=== PATIENT | female | born 1960 | race Caucasian/White ===

== ENCOUNTER 2016-11-06 23:23 | Emergency (ER) | payer MEDICARE, OTHER ==
[2016-11-06] MEDS ORDERED: KETOROLAC 60 MG/2 ML VIAL IVP STA (23:41)
--- NOTE | 2016-11-06 23:44 | ED ---
General Adult HPI - General Stated complaint: Chest Pain Time Seen by Provider: 11/06/16 23:25 Source: RN notes reviewed - History of Present Illness Initial comments: This is a 56-year-old female who presents to the emergency department complaining of right sided chest pain. Patient states it hurts when she takes a deep breath but if she takes normal breaths are shallow breath she does not have any pain. Patient states it also hurts if she moves her right arm. Patient states she was last Wednesday and was worked up for the same pain and was sent home. Patient denies any fever or chills. Patient states she has an occasional cough. Patient denies any sputum production. Patient denies any palpitations. Patient denies any recent injury or trauma that she knows of. Patient denies any heavy lifting that she knows of. Patient denies headache. Patient denies numbness weakness. Patient denies any diaphoresis. Patient states the pain does not radiate anywhere. - Related Data Home Medications Medication Instructions Recorded Confirmed Esomeprazole Magnesium [NexIUM] 40 mg PO DAILY 11/20/15 10/30/16 Ergocalciferol [Vitamin D2 50,000 unit PO BLAKE 07/24/16 10/30/16 (DRISDOL)] Venlafaxine HCl ER [Effexor XR] 150 mg PO HS 07/24/16 10/30/16 Ziprasidone [Geodon] 80 mg PO BID 07/24/16 10/30/16 Hydrocodone/Acetaminophen 1 tab PO TID PRN 08/31/16 10/30/16 [Hydrocodon-Acetaminophn 10-325] traZODone HCL 50 mg PO HS PRN 08/31/16 10/30/16 Albuterol Nebulized [Ventolin 2.5 mg INHALATION RT-Q4H PRN 09/10/16 10/30/16 Nebulized] Aspirin 325 mg PO DAILY 10/21/16 10/30/16 Clotrimazole Cream [Lotrimin Cream] 1 applic TOPICAL BID PRN 10/21/16 10/30/16 Ibuprofen [Motrin] 600 mg PO TID PRN 10/21/16 10/30/16 Isosorbide Mononitrate ER [Imdur] 30 mg PO DAILY 10/21/16 10/30/16 LORazepam [Ativan] 1 mg PO TID PRN 10/21/16 10/30/16 Melatonin 5 mg PO HS PRN 10/21/16 10/30/16 Nystatin 100,000 Unit/gm Powd 1 applic TOPICAL BID PRN 10/21/16 10/30/16 [Mycostatin Powder] Psyllium Husk (with Sugar) 6 gm PO DAILY PRN 10/21/16 10/30/16 [Metamucil Powder] Metoprolol Tartrate [Lopressor] 12.5 mg PO BID 10/30/16 10/30/16 amLODIPine [Norvasc] 2.5 mg PO DAILY 10/30/16 10/30/16 Previous Rx's Medication Instructions Recorded Lisinopril [Zestril] 5 mg PO DAILY tab 10/21/16 Allergies Allergy/AdvReac Type Severity Reaction Status Date / Time codeine Allergy Unknown Verified 10/30/16 18:34 lithium Allergy Unknown Verified 10/30/16 18:34 Review of Systems ROS Statement: Those systems with pertinent positive or pertinent negative responses have been documented in the HPI. ROS Other: All systems not noted in ROS Statement are negative. Past Medical History Past Medical History: Chest Pain / Angina, Diabetes Mellitus, GERD/Reflux, Hyperlipidemia, Hypertension, Osteoarthritis (OA), Sleep Apnea/CPAP/BIPAP Additional Past Medical History / Comment(s): borderline diabetic-no meds but checks bs 1-2 times per day, uses CPAP, DJD, recent R ear infection-tx with ABX.pt stated had past head injury" has comprehension problems", "has a sore on lt foot" History of Any Multi-Drug Resistant Organisms: None Reported Past Surgical History: Bladder Surgery, Tubal Ligation Additional Past Surgical History / Comment(s): 2015 cardiac cath-normal, bladder suspension Past Anesthesia/Blood Transfusion Reactions: No Reported Reaction Past Psychological History: Bipolar Additional Psychological History / Comment(s): Pt resides with her boyfriend. She does not drive, her boyfriend takes her to appointments. She sees a psychiatrist at [facility] and has a counselor. Smoking Status: Former smoker Past Alcohol Use History: None Reported Additional Past Alcohol Use History / Comment(s): started smoking at age 43 smoked 10 cig per day, quit -2015 Past Drug Use History: None Reported - Past Family History Father Family Medical History: Unable to Obtain Mother Family Medical History: Diabetes Mellitus General Exam - General Exam Comments Initial Comments: GENERAL: Patient is well-developed and well-nourished. Patient is nontoxic and well- hydrated and is in mild distress. ENT: Neck is soft and supple. No significant lymphadenopathy is noted. Oropharynx is clear. Moist mucous membranes. Neck has full range of motion without eliciting any pain. EYES: The sclera were anicteric and conjunctiva were pink and moist. Extraocular movements were intact and pupils were equal round and reactive to light. Eyelids were unremarkable. PULMONARY: Unlabored respirations. Good breath sounds bilaterally. No audible rales rhonchi or wheezing was noted. CARDIOVASCULAR: There is a regular rate and rhythm without any murmurs gallops or rubs. Patient has reproducible chest pain upper lateral aspect of the right side of her chest ABDOMEN: Soft and nontender with normal bowel sounds. No palpable organomegaly was noted. There is no palpable pulsatile mass. SKIN: Skin is clear with no lesions or rashes and otherwise unremarkable. NEUROLOGIC: Patient is alert and oriented x3. Cranial nerves II through XII are grossly intact. Motor and sensory are also intact. Normal speech, volume and content. Symmetrical smile. MUSCULOSKELETAL: Normal extremities with adequate strength and full range of motion. No lower extremity swelling or edema. No calf tenderness. LYMPHATICS: No significant lymphadenopathy is noted Course Vital Signs 11/06/16 23:38 Temperature 98.6 F Pulse Rate 62 Respiratory 18 Rate Blood Pressure 110/62 O2 Sat by Pulse 98 Oximetry Medical Decision Making - Medical Decision Making EKG shows normal sinus rhythm at 83 bpm. [place] interval is 150 QRS 76 QT interval 36 QTC is 453. Patient's EKG shows no ST segment elevation or depression or T- wave abnormality is noted. I looked at old EKG compared to EKG and there is no acute changes. Chest x-ray shows no acute abnormality. Patient stated that the Toradol seemed to help her chest wall pain. - Lab Data Result diagrams: 11/07/16 00:10 11/07/16 00:10 Lab Results 11/07/16 11/07/16 11/07/16 Range/Units 00:10 00:10 00:10 WBC 7.9 (3.8-10.6) k/uL RBC 4.10 (3.80-5.40) m/uL Hgb 11.7 (11.4-16.0) gm/dL Hct 36.4 (34.0-46.0) % MCV 88.8 (80.0-100.0) fL MCH 28.6 (25.0-35.0) pg MCHC 32.2 (31.0-37.0) g/dL RDW 13.8 (11.5-15.5) % Plt Count 391 (150-450) k/uL Neutrophils % 62 % Lymphocytes % 28 % Monocytes % 6 % Eosinophils % 2 % Basophils % 1 % Neutrophils # 4.9 (1.3-7.7) k/uL Lymphocytes # 2.3 (1.0-4.8) k/uL Monocytes # 0.4 (0-1.0) k/uL Eosinophils # 0.2 (0-0.7) k/uL Basophils # 0.1 (0-0.2) k/uL PT (9.0-12.0) sec INR (<1.1) APTT (22.0-30.0) sec Sodium 143 (137-145) mmol/L Potassium 3.6 (3.5-5.1) mmol/L Chloride 107 (98-107) mmol/L Carbon Dioxide 26 (22-30) mmol/L Anion Gap 10 mmol/L BUN 16 (7-17) mg/dL Creatinine 0.70 (0.52-1.04) mg/dL Est GFR (MDRD) Af Amer >60 (>60 ml/min/1.73 sqM) Est GFR (MDRD) Non-Af >60 (>60 ml/min/1.73 sqM) Glucose 127 H (74-99) mg/dL Calcium 8.5 (8.4-10.2) mg/dL Magnesium 1.5 L (1.6-2.3) mg/dL Total Bilirubin 0.1 L (0.2-1.3) mg/dL AST 13 L (14-36) U/L ALT 28 (9-52) U/L Alkaline Phosphatase 76 (38-126) U/L Total Creatine Kinase 26 L (30-135) U/L CK-MB (CK-2) 0.3 (0.0-2.4) ng/mL CK-MB (CK-2) Rel Index 1.2 Troponin I <0.012 (0.000-0.034) ng/mL Total Protein 5.7 L (6.3-8.2) g/dL Albumin 3.4 L (3.5-5.0) g/dL 11/07/16 Range/Units 00:10 WBC (3.8-10.6) k/uL RBC (3.80-5.40) m/uL Hgb (11.4-16.0) gm/dL Hct (34.0-46.0) % MCV (80.0-100.0) fL MCH (25.0-35.0) pg MCHC (31.0-37.0) g/dL RDW (11.5-15.5) % Plt Count (150-450) k/uL Neutrophils % % Lymphocytes % % Monocytes % % Eosinophils % % Basophils % % Neutrophils # (1.3-7.7) k/uL Lymphocytes # (1.0-4.8) k/uL Monocytes # (0-1.0) k/uL Eosinophils # (0-0.7) k/uL Basophils # (0-0.2) k/uL PT 10.9 (9.0-12.0) sec INR 1.1 (<1.1) APTT 25.5 (22.0-30.0) sec Sodium (137-145) mmol/L Potassium (3.5-5.1) mmol/L Chloride (98-107) mmol/L Carbon Dioxide (22-30) mmol/L Anion Gap mmol/L BUN (7-17) mg/dL Creatinine (0.52-1.04) mg/dL Est GFR (MDRD) Af Amer (>60 ml/min/1.73 sqM) Est GFR (MDRD) Non-Af (>60 ml/min/1.73 sqM) Glucose (74-99) mg/dL Calcium (8.4-10.2) mg/dL Magnesium (1.6-2.3) mg/dL Total Bilirubin (0.2-1.3) mg/dL AST (14-36) U/L ALT (9-52) U/L Alkaline Phosphatase (38-126) U/L Total Creatine Kinase (30-135) U/L CK-MB (CK-2) (0.0-2.4) ng/mL CK-MB (CK-2) Rel Index Troponin I (0.000-0.034) ng/mL Total Protein (6.3-8.2) g/dL Albumin (3.5-5.0) g/dL Disposition Clinical Impression: Chest wall pain Disposition: HOME SELF-CARE Instructions: Chest Wall Pain (ED) Additional Instructions: Patient's take Motrin when necessary for pain Time of Disposition: 01:14
[2016-11-06 23:54] VITALS: RESP 18
[2016-11-07 00:19] LABS: Basophils # (A) 0.1 k/uL (0-0.2); Basophils % (A) 1 %; CH 29.5; CHCM 33.3; Eosinophils # (A) 0.2 k/uL (0-0.7); Eosinophils % (A) 2 %; HCT 36.4 % (34.0-46.0); HGB 11.7 gm/dL (11.4-16.0); Luc # (Auto) 0.12; Luc % (Auto) 2; Lymphocytes # (A) 2.3 k/uL (1.0-4.8); Lymphocytes % (A) 28 %; MCH 28.6 pg (25.0-35.0); MCHC 32.2 g/dL (31.0-37.0); MCV 88.8 fL (80.0-100.0); Mean Platelet Volume 6.9; Monocytes # (A) 0.4 k/uL (0-1.0); Monocytes % (A) 6 %; Neutrophils # (A) 4.9 k/uL (1.3-7.7); Neutrophils % (A) 62 %; RDW 13.8 % (11.5-15.5); WBC 7.9 k/uL (3.8-10.6); WBC (Perox) 8.55
[2016-11-07 00:27] LABS: INR 1.1 (<1.1); Partial Thromboplastin Time 25.5 sec (22.0-30.0); Prothrombin Time 10.9 sec (9.0-12.0)
[2016-11-07 00:29] LABS: ALT 28 U/L (9-52); AST 13 U/L (14-36); Alkaline Phosphatase 76 U/L (38-126); Anion Gap 10 mmol/L; Blood Urea Nitrogen 16 mg/dL (7-17); Calcium 8.5 mg/dL (8.4-10.2); Carbon Dioxide 26 mmol/L (22-30); Chloride 107 mmol/L (98-107); Glucose 127 mg/dL (74-99); Magnesium 1.5 mg/dL (1.6-2.3); Non-African American GFR(MDRD) >60 (>60 ml/min/1.73 sqM); Potassium 3.6 mmol/L (3.5-5.1); Sodium 143 mmol/L (137-145); Total Bilirubin 0.1 mg/dL (0.2-1.3); Total Protein 5.7 g/dL (6.3-8.2)
[2016-11-07 00:41] LABS: Creatine Kinase 26 U/L (30-135)
[2016-11-07 00:54] LABS: Creatine Kinase MB 0.3 ng/mL (0.0-2.4); Troponin I <0.012 ng/mL (0.000-0.034)
--- NOTE | 2016-11-07 01:22 | XR ---
EXAMINATION TYPE: XR chest 2V DATE OF EXAM: 11/07/2016 1:02 AM COMPARISON: October 30, 2016 HISTORY: History of chest pain history of hypertension. TECHNIQUE: Frontal and lateral views of the chest are obtained. FINDINGS: There is suggestion of mild pulmonary vascular congestion. Minor pulmonary interstitial edema is sugg ested. There is no focal air space opacity, pleural effusion, or pneumothorax seen. There is mild cardiomega ly. The osseous structures are intact. IMPRESSION: 1. There is suggestion of mild pulmonary vascular congestion and interstitial pulmonary edema without definite focal pneumonia. 2. Mild cardiomegaly.
[2016-11-07 01:38] VITALS: BP 110/52; PULSE 82; TEMP 98.2
== END 2016-11-07 01:38 | disposition home or self-care (01) ==
LOC: EC 23:23
DX: R07.89 Other chest pain (principal); I10 Essential (primary) hypertension; K21.9 Gastro-esophageal reflux disease without esophagitis; F31.9 Bipolar disorder, unspecified; G47.30 Sleep apnea, unspecified; Z87.891 Personal history of nicotine dependence; Z79.899 Other long term (current) drug therapy; Z88.0 Allergy status to penicillin; Z88.8 Allergy status to other drugs, medicaments and biological substances; Z79.82 Long term (current) use of aspirin
CPT/HCPCS: 99285; 96374; 36415; 93005; 80053; 82550; 82553; 83735; 84484; 85025; 85610; 85730; 71020; J1885

== ENCOUNTER 2016-11-22 19:35 | Observation (INO) | payer MEDICARE, OTHER ==
[2016-11-22] MEDS ORDERED: ASPIRIN 81 MG CHEW PO STA (20:42)
[2016-11-22] MEDS ORDERED: NITROGLYCERIN SL TABS 0.4 MG TAB SUBLINGUAL STA ×3 (20:42)
--- NOTE | 2016-11-22 20:44 | ED ---
General Adult HPI - General Chief complaint: Chest Pain Stated complaint: chest pain Time Seen by Provider: 11/22/16 20:15 Source: patient, RN notes reviewed Mode of arrival: wheelchair Limitations: no limitations - History of Present Illness Initial comments: Patient is a pleasant 86-year-old female presenting to the emergency department complaining of chest discomfort. Onset was a few hours ago. Discomfort has been steady. Discomfort feels a pressure without radiation. Patient felt somewhat sweaty earlier. Patient complains of mild shortness of breath. No nausea. Patient has had similar symptoms previously with negative cardiac workup. No leg pain or leg swelling. - Related Data Home Medications Medication Instructions Recorded Confirmed Esomeprazole Magnesium [NexIUM] 40 mg PO DAILY 11/20/15 10/30/16 Ergocalciferol [Vitamin D2 50,000 unit PO BLAKE 07/24/16 10/30/16 (DRISDOL)] Venlafaxine HCl ER [Effexor XR] 150 mg PO HS 07/24/16 10/30/16 Ziprasidone [Geodon] 80 mg PO BID 07/24/16 10/30/16 Hydrocodone/Acetaminophen 1 tab PO TID PRN 08/31/16 10/30/16 [Hydrocodon-Acetaminophn 10-325] traZODone HCL 50 mg PO HS PRN 08/31/16 10/30/16 Albuterol Nebulized [Ventolin 2.5 mg INHALATION RT-Q4H PRN 09/10/16 10/30/16 Nebulized] Aspirin 325 mg PO DAILY 10/21/16 10/30/16 Clotrimazole Cream [Lotrimin Cream] 1 applic TOPICAL BID PRN 10/21/16 10/30/16 Ibuprofen [Motrin] 600 mg PO TID PRN 10/21/16 10/30/16 Isosorbide Mononitrate ER [Imdur] 30 mg PO DAILY 10/21/16 10/30/16 LORazepam [Ativan] 1 mg PO TID PRN 10/21/16 10/30/16 Melatonin 5 mg PO HS PRN 10/21/16 10/30/16 Nystatin 100,000 Unit/gm Powd 1 applic TOPICAL BID PRN 10/21/16 10/30/16 [Mycostatin Powder] Psyllium Husk (with Sugar) 6 gm PO DAILY PRN 10/21/16 10/30/16 [Metamucil Powder] Metoprolol Tartrate [Lopressor] 12.5 mg PO BID 10/30/16 10/30/16 amLODIPine [Norvasc] 2.5 mg PO DAILY 10/30/16 10/30/16 Previous Rx's Medication Instructions Recorded Lisinopril [Zestril] 5 mg PO DAILY tab 10/21/16 Allergies Allergy/AdvReac Type Severity Reaction Status Date / Time codeine Allergy Unknown Verified 10/30/16 18:34 lithium Allergy Unknown Verified 10/30/16 18:34 Review of Systems ROS Statement: Those systems with pertinent positive or pertinent negative responses have been documented in the HPI. ROS Other: All systems not noted in ROS Statement are negative. Constitutional: Denies: fever Eyes: Denies: eye pain ENT: Denies: ear pain Respiratory: Denies: cough Cardiovascular: Reports: chest pain Endocrine: Denies: fatigue Gastrointestinal: Denies: abdominal pain Genitourinary: Denies: dysuria Musculoskeletal: Denies: back pain Skin: Denies: rash Neurological: Denies: weakness Past Medical History Past Medical History: Chest Pain / Angina, Diabetes Mellitus, GERD/Reflux, Hyperlipidemia, Hypertension, Osteoarthritis (OA), Sleep Apnea/CPAP/BIPAP Additional Past Medical History / Comment(s): borderline diabetic-no meds but checks bs 1-2 times per day, uses CPAP, DJD, recent R ear infection-tx with ABX.pt stated had past head injury" has comprehension problems", "has a sore on lt foot" History of Any Multi-Drug Resistant Organisms: None Reported Past Surgical History: Bladder Surgery, Tubal Ligation Additional Past Surgical History / Comment(s): 2015 cardiac cath-normal, bladder suspension Past Anesthesia/Blood Transfusion Reactions: No Reported Reaction Past Psychological History: Bipolar Additional Psychological History / Comment(s): Pt resides with her boyfriend. She does not drive, her boyfriend takes her to appointments. She sees a psychiatrist at [facility] and has a counselor. Smoking Status: Former smoker Past Alcohol Use History: None Reported Additional Past Alcohol Use History / Comment(s): started smoking at age 43 smoked 10 cig per day, quit -2015 Past Drug Use History: None Reported - Past Family History Father Family Medical History: Unable to Obtain Mother Family Medical History: Diabetes Mellitus General Exam Limitations: no limitations General appearance: alert, in no apparent distress Head exam: Present: atraumatic Eye exam: Present: normal appearance, PERRL ENT exam: Present: normal oropharynx Neck exam: Present: normal inspection Respiratory exam: Present: normal lung sounds bilaterally, chest wall tenderness Cardiovascular Exam: Present: regular rate, normal rhythm Expanded Peripheral pulses: 2+: Radial (R), Radial (L), Dorsalis Pedis (R), Dorsalis Pedis (L) GI/Abdominal exam: Present: soft. Absent: tenderness Extremities exam: Present: normal inspection. Absent: pedal edema, calf tenderness Neurological exam: Present: alert Psychiatric exam: Present: flat affect Skin exam: Absent: rash Course Vital Signs 11/22/16 11/22/16 11/22/16 20:05 20:06 20:28 Temperature 99.3 F 98.4 F Pulse Rate 88 81 Pulse Rate [ 81 Neurosurgery Physician ] Respiratory 18 20 22 Rate Blood Pressure 131/79 143/81 O2 Sat by Pulse 95 98 Oximetry 11/22/16 11/22/16 20:50 21:01 Temperature Pulse Rate 78 82 Pulse Rate [ Neurosurgery Physician ] Respiratory 18 18 Rate Blood Pressure 152/70 129/65 O2 Sat by Pulse 97 97 Oximetry EKG Findings - EKG Comments: EKG Findings:: Normal sinus rhythm 79. Normal intervals. Normal axis. Normal QRS. Normal ST-T. Medical Decision Making - Medical Decision Making Patient reexamined and resting comfortably in bed. Patient states now much improvement with nitroglycerin. Patient updated on results and plan. Case discussed with practitioner Leigh Ann maldonado, who will admit for Dr. Bertrand, covering for Dr. Norton. - Lab Data Result diagrams: 11/22/16 20:20 11/22/16 20:20 Lab Results 11/22/16 11/22/16 11/22/16 Range/Units 20:20 20:20 20:20 WBC 9.8 (3.8-10.6) k/uL RBC 4.75 (3.80-5.40) m/uL Hgb 13.6 (11.4-16.0) gm/dL Hct 41.7 (34.0-46.0) % MCV 87.8 (80.0-100.0) fL MCH 28.5 (25.0-35.0) pg MCHC 32.5 (31.0-37.0) g/dL RDW 13.8 (11.5-15.5) % Plt Count 489 H (150-450) k/uL Neutrophils % 68 % Lymphocytes % 23 % Monocytes % 6 % Eosinophils % 0 % Basophils % 0 % Neutrophils # 6.7 (1.3-7.7) k/uL Lymphocytes # 2.3 (1.0-4.8) k/uL Monocytes # 0.6 (0-1.0) k/uL Eosinophils # 0.0 (0-0.7) k/uL Basophils # 0.0 (0-0.2) k/uL PT (9.0-12.0) sec INR (<1.1) APTT (22.0-30.0) sec D-Dimer (<0.60) mg/L FEU Sodium 142 (137-145) mmol/L Potassium 4.1 (3.5-5.1) mmol/L Chloride 101 (98-107) mmol/L Carbon Dioxide 26 (22-30) mmol/L Anion Gap 15 mmol/L BUN 18 H (7-17) mg/dL Creatinine 0.70 (0.52-1.04) mg/dL Est GFR (MDRD) Af Amer >60 (>60 ml/min/1.73 sqM) Est GFR (MDRD) Non-Af >60 (>60 ml/min/1.73 sqM) Glucose 104 H (74-99) mg/dL Calcium 9.5 (8.4-10.2) mg/dL Magnesium 1.7 (1.6-2.3) mg/dL Total Bilirubin 0.3 (0.2-1.3) mg/dL AST 18 (14-36) U/L ALT 29 (9-52) U/L Alkaline Phosphatase 85 (38-126) U/L Total Creatine Kinase 42 (30-135) U/L CK-MB (CK-2) 0.5 (0.0-2.4) ng/mL CK-MB (CK-2) Rel Index 1.2 Troponin I <0.012 (0.000-0.034) ng/mL Total Protein 7.7 (6.3-8.2) g/dL Albumin 4.5 (3.5-5.0) g/dL 11/22/16 Range/Units 20:20 WBC (3.8-10.6) k/uL RBC (3.80-5.40) m/uL Hgb (11.4-16.0) gm/dL Hct (34.0-46.0) % MCV (80.0-100.0) fL MCH (25.0-35.0) pg MCHC (31.0-37.0) g/dL RDW (11.5-15.5) % Plt Count (150-450) k/uL Neutrophils % % Lymphocytes % % Monocytes % % Eosinophils % % Basophils % % Neutrophils # (1.3-7.7) k/uL Lymphocytes # (1.0-4.8) k/uL Monocytes # (0-1.0) k/uL Eosinophils # (0-0.7) k/uL Basophils # (0-0.2) k/uL PT 11.1 (9.0-12.0) sec INR 1.1 (<1.1) APTT 25.3 (22.0-30.0) sec D-Dimer 0.30 (<0.60) mg/L FEU Sodium (137-145) mmol/L Potassium (3.5-5.1) mmol/L Chloride (98-107) mmol/L Carbon Dioxide (22-30) mmol/L Anion Gap mmol/L BUN (7-17) mg/dL Creatinine (0.52-1.04) mg/dL Est GFR (MDRD) Af Amer (>60 ml/min/1.73 sqM) Est GFR (MDRD) Non-Af (>60 ml/min/1.73 sqM) Glucose (74-99) mg/dL Calcium (8.4-10.2) mg/dL Magnesium (1.6-2.3) mg/dL Total Bilirubin (0.2-1.3) mg/dL AST (14-36) U/L ALT (9-52) U/L Alkaline Phosphatase (38-126) U/L Total Creatine Kinase (30-135) U/L CK-MB (CK-2) (0.0-2.4) ng/mL CK-MB (CK-2) Rel Index Troponin I (0.000-0.034) ng/mL Total Protein (6.3-8.2) g/dL Albumin (3.5-5.0) g/dL - Radiology Data Radiology results: image reviewed (Chest x-ray shows no acute process.) Disposition Clinical Impression: Chest pain Disposition: ADMITTED IP TO THIS HOSP Referrals: Cliff Norton MD [Primary Care Provider] - 1-2 days
[2016-11-22 21:03] LABS: Basophils % (A) 0 %; CH 28.8; CHCM 32.9; Eosinophils % (A) 0 %; HCT 41.7 % (34.0-46.0); HDW 2.47; HGB 13.6 gm/dL (11.4-16.0); Luc % (Auto) 2; Lymphocytes # (A) 2.3 k/uL (1.0-4.8); Lymphocytes % (A) 23 %; MCH 28.5 pg (25.0-35.0); MCHC 32.5 g/dL (31.0-37.0); MCV 87.8 fL (80.0-100.0); Monocytes # (A) 0.6 k/uL (0-1.0); Monocytes % (A) 6 %; Neutrophils # (A) 6.7 k/uL (1.3-7.7); Neutrophils % (A) 68 %; RBC 4.75 m/uL (3.80-5.40); RDW 13.8 % (11.5-15.5); WBC 9.8 k/uL (3.8-10.6); WBC (Perox) 9.78
[2016-11-22 21:11] LABS: ALT 29 U/L (9-52); AST 18 U/L (14-36); Alkaline Phosphatase 85 U/L (38-126); Anion Gap 15 mmol/L; Blood Urea Nitrogen 18 mg/dL (7-17); Calcium 9.5 mg/dL (8.4-10.2); Carbon Dioxide 26 mmol/L (22-30); Chloride 101 mmol/L (98-107); Glucose 104 mg/dL (74-99); Magnesium 1.7 mg/dL (1.6-2.3); Non-African American GFR(MDRD) >60 (>60 ml/min/1.73 sqM); Potassium 4.1 mmol/L (3.5-5.1); Sodium 142 mmol/L (137-145); Total Bilirubin 0.3 mg/dL (0.2-1.3); Total Protein 7.7 g/dL (6.3-8.2)
[2016-11-22 21:15] LABS: INR 1.1 (<1.1); Partial Thromboplastin Time 25.3 sec (22.0-30.0); Prothrombin Time 11.1 sec (9.0-12.0)
--- NOTE | 2016-11-22 21:22 | XR ---
EXAMINATION TYPE: XR chest 2V DATE OF EXAM: 11/22/2016 9:03 PM COMPARISON: Prior chest x-ray November HISTORY: Chest pain TECHNIQUE: Frontal and lateral views of the chest are obtained. FINDINGS: There is no focal air space opacity, pleural effusion, or pneumothorax seen. The cardiac silhouette size is not significantly changed. Patient is rotated, there are overlying cardiac leads. Heart size may be accentuated by rotation. The osseous structures are intact. IMPRESSION: Rotated exam. There may be underlying cardiomegaly.
[2016-11-22 21:26] LABS: Creatine Kinase 42 U/L (30-135)
[2016-11-22 21:39] LABS: Creatine Kinase MB 0.5 ng/mL (0.0-2.4); Troponin I <0.012 ng/mL (0.000-0.034)
[2016-11-22] MEDS ORDERED: HEPARIN SODIUM,PORCINE 5,000 UNIT/ML 1 ML VIAL IV ONE (22:05)
[2016-11-22] MEDS ORDERED: HEPARIN SODIUM,PORCINE 5,000 UNIT/ML 1 ML VIAL IV PRN (22:05)
[2016-11-22] MEDS ORDERED: HEPARIN SODIUM,PORCINE/D5W PMX 25,000 UNIT in DEXTROSE/WATER 1 500ML.BAG IV SCH (22:15)
[2016-11-22] MEDS: ACETAMINOPHEN TAB 325 MG TAB PO STA (23:48)
[2016-11-23] MEDS: NITROGLYCERIN SL TABS 0.4 MG TAB SUBLINGUAL PRN ×4 (02:16→23:38)
[2016-11-23] MEDS ORDERED: IBUPROFEN 400 MG TAB PO STA (02:27)
[2016-11-23] MEDS: NITROGLYCERIN OINT 1 INCH/GM PACKET TOPICAL SCH ×3 (02:29→16:54)
[2016-11-23 03:26] LABS: Creatine Kinase 40 U/L (30-135)
[2016-11-23 03:40] LABS: Creatine Kinase MB 0.5 ng/mL (0.0-2.4); Troponin I <0.012 ng/mL (0.000-0.034)
[2016-11-23 08:30] LABS: Mean Platelet Volume 6.8
[2016-11-23] MEDS: ACETAMINOPHEN TAB 325 MG TAB PO STA (08:37)
[2016-11-23] MEDS: ASPIRIN 325 MG TAB PO SCH (08:46)
[2016-11-23 08:50] LABS: Creatine Kinase 35 U/L (30-135)
[2016-11-23 08:58] LABS: Cholesterol 152 mg/dL (<200); HDL Cholesterol 41 mg/dL (40-60); Triglycerides 87 mg/dL (<150)
[2016-11-23 09:03] LABS: Creatine Kinase MB 0.5 ng/mL (0.0-2.4); Troponin I <0.012 ng/mL (0.000-0.034)
[2016-11-23] MEDS ORDERED: CLOTRIMAZOLE 1% CREAM 15 GM TUBE TOPICAL PRN (15:01)
[2016-11-23] MEDS ORDERED: IBUPROFEN 600 MG TAB PO PRN (15:01)
[2016-11-23] MEDS ORDERED: ALBUTEROL NEBULIZED 2.5 MG/3 ML INHALATION PRN (15:01)
[2016-11-23] MEDS ORDERED: traZODone HCL 50 MG TAB PO PRN (15:01)
[2016-11-23] MEDS ORDERED: MELATONIN 5 MG TABLET PO PRN (15:01)
[2016-11-23] MEDS ORDERED: PSYLLIUM HUSK 100% 6 GM PACKET PO PRN (15:01)
[2016-11-23] MEDS ORDERED: NYSTATIN 100,000 UNIT/GM POWD 15 GM TOPICAL PRN (15:01)
[2016-11-23] MEDS: LORazepam 1 MG TAB PO PRN ×2 (15:49→21:49)
[2016-11-23] MEDS: HYDROcodone/APAP 10-325MG 1 EACH TAB PO PRN ×2 (15:49→21:49)
--- NOTE | 2016-11-23 17:21 | PN ---
Genoveva Kenney is a 56-year-old female who came in with chest discomfort. This was right-sided chest discomfort, sharp and lasting for a few hours that started last night. She was not doing anything at that time and her pain is almost gone now. She has had repeated admissions for the same chest pain. Last year her cardiac workup was within normal limits. She denies any palpitations, dizziness, lightheadedness, loss of consciousness, or shortness of breath. No orthopnea or PND. Medication list was reviewed and includes: 1. Trazodone. 2. Amlodipine. 3. Geodon. 4. Venlafaxine. 5. Metoprolol. 6. Lisinopril. 7. Ativan. 8. Isosorbide mononitrate. 9. Aspirin. 10. Ventolin. 11. Drisdol. 12. Nexium. REVIEW OF SYSTEMS: No fever, chills or rigors. No cough or expectoration. No nausea, vomiting, or diarrhea. No hematuria or dysuria. No strokes or seizures. No skin lesions or musculoskeletal complaints. ALLERGIES: Reviewed and are documented in the chart. Past surgical history was reviewed includes cardiac catheterization and bladder suspension surgery. SOCIAL HISTORY: She was a former smoker. She has stopped smoking now. Family history of diabetes. On examination her temperature is normal 98.9 degrees Fahrenheit. Pulse rate is in the 80s. Respirations are normal. Blood pressure 106/53 mm Hg. Head and neck examination is normal. Heart sounds are normal and lungs are clear on auscultation. EXTREMITIES: Warm. No edema. All 12 lead ECGs were reviewed and showed normal sinus rhythm, normal cardiac intervals, normal ST segments. Labs are reviewed. Cardiac enzymes are normal. Electrolytes are normal. Hemoglobin is normal. Kidney function is normal. LDL is 94. HDL 152. Suggest: Dobutamine stress echo tomorrow. Continue cardiac medications. May stop nitroglycerin.
[2016-11-23] MEDS ORDERED: VENLAFAXINE HCL ER 150 MG CAP PO SCH (21:00)
[2016-11-23] MEDS: ZIPRASIDONE 80 MG CAP PO SCH (21:49)
[2016-11-23] MEDS: METOPROLOL TARTRATE 12.5 MG TAB PO SCH (21:49)
[2016-11-24] MEDS ORDERED: PANTOPRAZOLE 40 MG TABLET PO SCH (07:30)
[2016-11-24 07:38] LABS: Mean Platelet Volume 6.8
[2016-11-24] MEDS ORDERED: LISINOPRIL 5 MG TAB PO SCH (09:00)
[2016-11-24] MEDS ORDERED: amLODIPine 2.5 MG TAB PO SCH (09:00)
[2016-11-24] MEDS ORDERED: ISOSORBIDE MONONITRATE ER 30 MG TAB.ER.24H PO SCH (09:00)
[2016-11-24] MEDS ORDERED: ASPIRIN 325 MG TAB PO SCH (09:00)
[2016-11-24] MEDS ORDERED: DOBUTamine DRIP for NUC MED 500 MG in DEXTROSE/WATER 1 250ML.BAG IV ONE (09:00)
--- NOTE | 2016-11-24 09:08 | HP ---
DATE OF ADMISSION: 11/22/2016 CHIEF COMPLAINT: Chest pain. HISTORY OF PRESENT ILLNESS: Ms. Kenney is a 56-year-old with known history of bipolar disorder, hypertension, borderline diabetes mellitus, obstructive sleep apnea on CPAP and history of similar complaints 3 years ago, admitted to the hospital with complaints of chest discomfort, mainly in the right side of the chest. Also the patient felt lightheaded and had neck stiffening. Discomfort says that the discomfort has been steady. Feels like a pressure. Denied any radiation. Denied nausea or vomiting. The patient did feel mildly short of breath with no relieving factors. No dizziness or light headedness. The patient came to the hospital for further evaluation. Patient does have underlying bipolar disorder. Patient had a negative work-up previously. Denied any fever or chills. No nausea or vomiting, abdominal pain. No recent illnesses or sick contacts at home. REVIEW OF SYSTEMS: CONSTITUTIONAL: No fever. No chills. RESPIRATORY: No cough or sputum production. CARDIOVASCULAR: No chest pain. No shortness of breath. No leg swelling. ABDOMEN: No nausea, vomiting or methadone pain. GENITOURINARY: Negative. ENDOCRINE: Negative. PSYCHIATRIC: As above. SKIN: Negative. All other fourteen-point review of systems negative. PAST MEDICAL HISTORY: Chest pain/angina, diabetes mellitus borderline, not on any medications. History of sleep apnea on CPAP, GERD, hypertension, hyperlipidemia. PAST SURGICAL HISTORY: Bladder surgery, tubal ligation, ( ) cardiac cath which was normal, bladder surgery. PSYCHOSOCIAL HISTORY: Bipolar disorder. SOCIAL HISTORY: Patient resides with her boyfriend. Patient is a former smoker, started smoking at age 43, smokes 10 cigarettes per day, quit in August of 2016. FAMILY HISTORY: Mother had diabetes mellitus. Father's history is unable to be obtained. ALLERGIES: CODEINE, LITHIUM. Home medications: 1. Nexium. 2. Drisdol. 3. Effexor XR. 4. Geodon. 5. [place] 10. 6. Trazodone. 7. Ventolin. 8. Aspirin. 9. Lotrimin. 10. Motrin. 11. Ativan. 12. Mycostatin powder. 13. Cilium. 14. Metoprolol. 15. Amlodipine. PHYSICAL EXAMINATION: A 56-year-old female, lying in the bed, awake, alert, oriented x3. The patient does have a flat affect. VITALS: Blood pressure is 126/72, pulse is 76, respirations 18, pulse ox 92% on room air. HEENT: Atraumatic, normocephalic. NECK: Supple. No JVD. CVS: S1, S2 heard. No murmurs, no gallop, no rub. LUNGS: Bilateral air entry present. No wheezing. No crackles. Nonlabored breathing. ABDOMEN: Soft, nontender. Bowel sounds present. SENIOR LEAD SOFTWARE ENGINEER: Awake, alert and oriented x3. No focal deficits. EXTREMITIES: No edema. Pulses palpable bilaterally. No clubbing or cyanosis. PSYCHIATRIC: Cooperative. Patient does have ( ). LABORATORY DATA: WBC 10.8, hemoglobin 13.6, platelets of 489, INR 1.1, D-dimer 0.30. Sodium 142, potassium 4.4, chloride 101, bicarb is 26. BUN 18, creatinine 0.7. Troponin x3 negative. Albumin 4.5, LDH ( ). Chest x-ray, possible underlying cardiomegaly EKG normal sinus syndrome, normal ST-T waves. IMPRESSION: 1. Chest pain, rule out acute coronary syndrome. 2. Bipolar disorder. 3. Hypertension. 4. Hyperlipidemia. 5. History of smoking. 6. Gastroesophageal reflux disease. 7. Diet-controlled diabetes mellitus. 8. History of previous negative cardiac workup. DISCUSSION AND PLAN: I will continue with telemetry monitoring, serial EKGs and troponins if negative. We will continue to have cardiology follow this patient. Otherwise we will continue with home medications including bipolar medications. Follow up closely. Further recommendations based on the clinical course.
[2016-11-24] MEDS ORDERED: ATROPINE SULFATE 0.1 MG/ML 10ML SYRINGE ONE (09:37)
[2016-11-24 10:23] VITALS: RESP 18
[2016-11-24] MEDS: ZIPRASIDONE 80 MG CAP PO SCH (10:24)
[2016-11-24] MEDS: METOPROLOL TARTRATE 12.5 MG TAB PO SCH (10:24)
[2016-11-24] MEDS: ASPIRIN 325 MG TAB PO SCH (10:24)
[2016-11-24] MEDS: HYDROcodone/APAP 10-325MG 1 EACH TAB PO PRN (10:25)
--- NOTE | 2016-11-24 10:53 | ECHOS ---
DATE OF SERVICE: 11/24/2016 AGE: 56Y SEX: F HT: 61 WT: 182 lbs. Protocol Brandt: Others: Dobutamine Stress Echo Stage: Dur. of Exercise: *Heart Rate Blood Pressure *Rest: 68 Rest: 106/61 * *Max. Achieved: 142 Maximum BP: 149/71 85% PMHR: 139 100% PMHR: 163 *METS: INDICATIONS: Chest pain. MEDICATIONS: Nexium, Drisdol, amlodipine, Geodon, lisinopril, metoprolol, Ativan, isosorbide, Ventolin. The test is being done to evaluate symptoms of chest pain. The patient has history of hypertension and hypercholesterolemia. Baseline EKG showed sinus rhythm with normal NE interval and QRS duration. Blood pressure at rest is 106/61 with pulse rate of 68. A standard dose of dobutamine was infused and titrated to maximum of 40 mcg achieving a maximum heart rate 142 with additional injection of atropine. EKGs taken during and after the injection did not reveal any changes to suggest ischemia. ECHO DATA: Baseline echo images show normal wall motion and thickening. Exercise echo images showed augmentation of the wall motion and thickening, both at the low-dose and high-dose. FINAL IMPRESSION: 1. Negative dobutamine stress test. 2. Negative dobutamine stress echo.
--- NOTE | 2016-11-24 11:47 | P.PN ---
Subjective Patient resting comfortably in bed at this point. Can reproduce right-sided chest pain will follow-up palpation and muscle stretching. Dobutamine stress test negative Objective - Vital Signs Vital signs: Vital Signs Temp 98.2 F 11/24/16 08:00 Pulse 105 H 11/24/16 10:22 Resp 18 11/24/16 10:22 BP 113/77 11/24/16 10:22 Pulse Ox 93 L 11/24/16 08:00 Intake & Output 11/23/16 11/24/16 11/24/16 18:59 06:59 18:59 Intake Total 420 Balance 420 Weight 82.8 kg Intake: Oral 420 Other: Voiding Method Toilet Toilet Toilet # Voids 1 - Constitutional General appearance: Present: obese - EENT Eyes: Present: PERRLA Ears: bilateral: normal - Neck Neck: Present: normal ROM - Respiratory Respiratory: bilateral: CTA - Cardiovascular Rhythm: regular - Gastrointestinal General gastrointestinal: Present: soft - Neurologic Neurologic: Present: CNII-XII intact - Musculoskeletal Musculoskeletal: Present: gait normal - Psychiatric Psychiatric Comment(s): Patient has some cognitive impairment has delayed speech - Labs CBC & Chem 7: 11/24/16 07:17 11/22/16 20:20 Labs: Abnormal Lab Results - Last 24 Hours (Table) 11/23/16 Range/Units 14:39 APTT 41.4 H (22.0-30.0) sec Assessment and Plan Plan: Assessment Atypical chest pain negative dobutamine test Bipolar disorder History of hypertension Hyperlipidemia History of smoking GERD Diet-controlled diabetes Plan Hopeful discharge soon a negative dobutamine test
[2016-11-24 12:33] VITALS: BP 93/58; PULSE 86; TEMP 98.4
--- NOTE | 2016-11-24 12:39 | P.DS ---
Providers Date of admission: 11/22/16 22:15 Expected date of discharge: 11/24/16 Attending physician: Cliff Norton Primary care physician: Cliff Norton Pertinent Studies: 56-year-old female was in the admitted for observation through the emergency room with complaints of persistent chest pain. Patient said several workups for chest pain and have been found to be negative. Patient had dobutamine stress test was found to be negative. Patient to be released home and follow up with family physician Assessment atypical chest pain negative dobutamine stress bipolar disorder hypertension hyperlipidemia history of smoking GERD diabetes type II day controlled Plan all home medications follow up with family physician Plan - Discharge Summary Discharge Medication List Esomeprazole Magnesium [NexIUM] 40 mg PO DAILY 11/20/15 [History] Ergocalciferol [Vitamin D2 (DRISDOL)] 50,000 unit PO BLAKE 07/24/16 [History] Venlafaxine HCl ER [Effexor XR] 150 mg PO HS 07/24/16 [History] Ziprasidone [Geodon] 80 mg PO BID 07/24/16 [History] Hydrocodone/Acetaminophen [Hydrocodon-Acetaminophn 10-325] 1 tab PO TID PRN [History] traZODone HCL 50 mg PO HS PRN 08/31/16 [History] Albuterol Nebulized [Ventolin Nebulized] 2.5 mg INHALATION RT-Q4H PRN 09/10/16 [ History] Aspirin 325 mg PO DAILY 10/21/16 [History] Clotrimazole Cream [Lotrimin Cream] 1 applic TOPICAL BID PRN 10/21/16 [History] Ibuprofen [Motrin] 600 mg PO TID PRN 10/21/16 [History] Isosorbide Mononitrate ER [Imdur] 30 mg PO DAILY 10/21/16 [History] LORazepam [Ativan] 1 mg PO TID PRN 10/21/16 [History] Lisinopril [Zestril] 5 mg PO DAILY tab 10/21/16 [Rx] Melatonin 5 mg PO HS PRN 10/21/16 [History] Nystatin 100,000 Unit/gm Powd [Mycostatin Powder] 1 applic TOPICAL BID PRN 10/21 [History] Psyllium Husk (with Sugar) [Metamucil Powder] 6 gm PO DAILY PRN 10/21/16 [ History] Metoprolol Tartrate [Lopressor] 12.5 mg PO BID 10/30/16 [History] amLODIPine [Norvasc] 2.5 mg PO DAILY 10/30/16 [History] Follow up Appointment(s)/Referral(s): Cliff Norton MD [Primary Care Provider] - 1-2 days
== END 2016-11-24 15:09 | disposition home or self-care (01) ==
LOC: EC 19:35 → 3OBS 22:15
PROVIDERS: ADMIT Family Medicine; ATTEND Family Medicine
DX: R07.89 Other chest pain (principal); F31.9 Bipolar disorder, unspecified; I10 Essential (primary) hypertension; E78.5 Hyperlipidemia, unspecified; K21.9 Gastro-esophageal reflux disease without esophagitis; R73.03 Prediabetes; M19.90 Unspecified osteoarthritis, unspecified site; G47.33 Obstructive sleep apnea (adult) (pediatric); Z79.82 Long term (current) use of aspirin; Z79.899 Other long term (current) drug therapy; Z88.5 Allergy status to narcotic agent; Z88.8 Allergy status to other drugs, medicaments and biological substances; Z99.89 Dependence on other enabling machines and devices; Z87.891 Personal history of nicotine dependence; Z83.3 Family history of diabetes mellitus
CPT/HCPCS: 36415; 94760; 93005 ×2; 93017; 93350; 85379; 80061; 80053; 82550 ×2; 82553 ×2; 83735; 84484 ×2; 85025; 85049 ×2; 85610; 85730 ×2; 71020; 99285; 96365; 96366 ×14; 96376; G0378 ×3; J1250; J1644 ×2

== ENCOUNTER 2016-11-30 18:28 | Emergency (ER) | payer MEDICARE, OTHER ==
[2016-11-30] MEDS ORDERED: SODIUM CHLORIDE 0.9% 500 ML IV STA (19:08)
[2016-11-30] MEDS ORDERED: ASPIRIN 81 MG CHEW PO STA (19:08)
--- NOTE | 2016-11-30 19:12 | ED ---
Chest Pain HPI - General Chief Complaint: Chest Pain Stated Complaint: anxiety, chest pain Time Seen by Provider: 11/30/16 19:03 Source: patient, RN notes reviewed Mode of arrival: ambulatory Limitations: no limitations - History of Present Illness Initial Comments: 56-year-old female presents to the emergency department with a chief complaint of right-sided chest pain that started 2 hours ago. Patient states stabbing type pain. Patient states there is mild shortness of breath with it. Patient states she did have a family week and half ago she was admitted to the hospital they did a workup for told it was on her and she was sent home. Patient states the pain then reoccurred again today. Patient states that she has just a mild stabbing irritated pain that is worse to touch. Patient states she hasn't had any fever chills with it. Patient denies any cough cold runny nose. Patient denies any nausea vomiting or diaphoresis associated with the pain. Patient states that she was concerned due to the pain so she thought that she should be reevaluated. Patient states this of anxiety and thinks it could possibly be that as well. Patient denies any recent fever, chills, back pain, abdominal pain , nausea vomiting, numbness or tingling, dysuria or hematuria, constipation or diarrhea, headaches or visual changes, or any other current symptoms. - Related Data Home Medications Medication Instructions Recorded Confirmed Esomeprazole Magnesium [NexIUM] 40 mg PO DAILY 11/20/15 11/30/16 Ergocalciferol [Vitamin D2 50,000 unit PO BLAKE 07/24/16 11/30/16 (DRISDOL)] Venlafaxine HCl ER [Effexor XR] 150 mg PO HS 07/24/16 11/30/16 Ziprasidone [Geodon] 80 mg PO BID 07/24/16 11/30/16 Hydrocodone/Acetaminophen 1 tab PO TID PRN 08/31/16 11/30/16 [Hydrocodon-Acetaminophn 10-325] traZODone HCL 50 mg PO HS PRN 08/31/16 11/30/16 Albuterol Nebulized [Ventolin 2.5 mg INHALATION RT-Q4H PRN 09/10/16 11/30/16 Nebulized] Aspirin 325 mg PO DAILY 10/21/16 11/30/16 Clotrimazole Cream [Lotrimin Cream] 1 applic TOPICAL BID PRN 10/21/16 11/30/16 Ibuprofen [Motrin] 600 mg PO TID PRN 10/21/16 11/30/16 Isosorbide Mononitrate ER [Imdur] 30 mg PO DAILY 10/21/16 11/30/16 LORazepam [Ativan] 1 mg PO TID PRN 10/21/16 11/30/16 Melatonin 5 mg PO HS PRN 10/21/16 11/30/16 Nystatin 100,000 Unit/gm Powd 1 applic TOPICAL BID PRN 10/21/16 11/30/16 [Mycostatin Powder] Metoprolol Tartrate [Lopressor] 12.5 mg PO BID 10/30/16 11/30/16 amLODIPine [Norvasc] 2.5 mg PO DAILY 10/30/16 11/30/16 Psyllium Husk 100% [Metamucil] 6 gm PO DAILY PRN 11/30/16 11/30/16 traMADol HCL [Ultram] 50 mg PO Q6HR PRN 11/30/16 11/30/16 Previous Rx's Medication Instructions Recorded Lisinopril [Zestril] 5 mg PO DAILY tab 10/21/16 Allergies Allergy/AdvReac Type Severity Reaction Status Date / Time codeine Allergy Unknown Verified 11/30/16 20:01 lithium Allergy Unknown Verified 11/30/16 20:01 Review of Systems ROS Statement: Those systems with pertinent positive or pertinent negative responses have been documented in the HPI. ROS Other: All systems not noted in ROS Statement are negative. EKG Findings - EKG Comments: EKG Findings:: normal sinus rhythm 97 bpm, normal axis, no atopy, no S-T depressions or elevations, prolonged QT Past Medical History Past Medical History: Chest Pain / Angina, Diabetes Mellitus, GERD/Reflux, Hyperlipidemia, Hypertension, Osteoarthritis (OA), Sleep Apnea/CPAP/BIPAP Additional Past Medical History / Comment(s): borderline diabetic-no meds, uses CPAP, DJD, R ear infection, pt stated had past head injury" has comprehension problems", "has a sore on lt foot" History of Any Multi-Drug Resistant Organisms: None Reported Past Surgical History: Bladder Surgery, Heart Catheterization, Tubal Ligation Additional Past Surgical History / Comment(s): 2014 cardiac cath-normal, bladder suspension Past Anesthesia/Blood Transfusion Reactions: No Reported Reaction Past Psychological History: Bipolar Additional Psychological History / Comment(s): Pt resides with her boyfriend. She does not drive, her boyfriend takes her to appointments. She sees a psychiatrist at [facility] and has a counselor. She has a cane. She has CPAP. Smoking Status: Former smoker Past Alcohol Use History: None Reported Additional Past Alcohol Use History / Comment(s): started smoking at age 43 smoked 10 cig per day, quit -2015 Past Drug Use History: None Reported - Past Family History Father History Unknown: Yes Family Medical History: Unable to Obtain Mother Family Medical History: Diabetes Mellitus General Exam - General Exam Comments Initial Comments: General: The patient is awake and alert, in no distress, and does not appear acutely ill. Eye: Pupils are equal, round and reactive to light, extra-ocular movements are intact; there is normal conjunctiva bilaterally. No signs of icterus. Ears, nose, mouth and throat: There are moist mucous membranes and no oral lesions. Neck: The neck is supple, there is no tenderness. Cardiovascular: There is a regular rate and rhythm. No murmur, rub or gallop is appreciated. Tenderness to palpation of the right side of the chest Respiratory: Lungs are clear to auscultation, respirations are non-labored, breath sounds are equal. No wheezes, stridor, rales, or rhonchi. Gastrointestinal: Soft, non-distended, non-tender abdomen without masses or organomegaly noted. There is no rebound or guarding present. No CVA tenderness. Bowel sounds are unremarkable. Back: There is no tenderness to palpation in the midline. There is no obvious deformity. No rashes noted. Musculoskeletal: Normal ROM, no tenderness, There is no pedal edema. There is no calf tenderness or swelling. Sensation intact. Pulses equal bilaterally 2+. Neurological: CN II-XII intact, There are no obvious motor or sensory deficits. Coordination appears grossly intact. Speech is normal. Skin: Skin is warm and dry and no rashes or lesions are noted. Psychiatric: Cooperative, appropriate mood & affect, normal judgment. Limitations: no limitations Course Vital Signs 11/30/16 11/30/16 19:01 20:36 Temperature 97.4 F L Pulse Rate 105 H 86 Respiratory 18 20 Rate Blood Pressure 115/60 113/58 O2 Sat by Pulse 97 96 Oximetry Chest Pain MDM - MDM 56-year-old female presents to the emergency department with a chief complaint of right sided stabbing chest pain. Patient states is exactly like chest pain that she had when she was here a few days ago. Patient's previous admission was reviewed that does show a negative stress test. Patient at this time states that she believes her chest pain is due to anxiety she is feeling better with the Toradol just feels if she is relaxed. At this time we will discharge the patient home patient is requesting to go home. We discussed continued follow-up with her doctor. Patient states she understood all questions were answered. Disposition Clinical Impression: Chest wall pain, Anxiety Disposition: HOME SELF-CARE Condition: Stable Instructions: Costochondritis (ED) Additional Instructions: Please use medication as discussed. Please follow up with family doctor if symptoms have not improved over the next two days. Please return to the emergency room if your symptoms increase or worsen or for any other concerns. Referrals: Cliff Norton MD [Primary Care Provider] - 1-2 days Time of Disposition: 21:19
[2016-11-30 19:27] LABS: Basophils # (A) 0.1 k/uL (0-0.2); Basophils % (A) 1 %; CH 29.2; CHCM 33.2; Eosinophils # (A) 0.1 k/uL (0-0.7); Eosinophils % (A) 1 %; HCT 39.3 % (34.0-46.0); HDW 2.49; HGB 12.8 gm/dL (11.4-16.0); Luc # (Auto) 0.23; Luc % (Auto) 2; Lymphocytes # (A) 2.9 k/uL (1.0-4.8); Lymphocytes % (A) 25 %; MCH 28.8 pg (25.0-35.0); MCHC 32.7 g/dL (31.0-37.0); MCV 88.3 fL (80.0-100.0); Mean Platelet Volume 6.2; Monocytes # (A) 0.5 k/uL (0-1.0); Monocytes % (A) 4 %; Neutrophils # (A) 7.9 k/uL (1.3-7.7); Neutrophils % (A) 68 %; RBC 4.45 m/uL (3.80-5.40); WBC 11.7 k/uL (3.8-10.6); WBC (Perox) 11.57
[2016-11-30 19:43] LABS: ALT 29 U/L (9-52); AST 16 U/L (14-36); Alkaline Phosphatase 84 U/L (38-126); Anion Gap 16 mmol/L; Blood Urea Nitrogen 15 mg/dL (7-17); Calcium 9.3 mg/dL (8.4-10.2); Carbon Dioxide 22 mmol/L (22-30); Chloride 104 mmol/L (98-107); Glucose 146 mg/dL (74-99); Magnesium 1.5 mg/dL (1.6-2.3); Non-African American GFR(MDRD) >60 (>60 ml/min/1.73 sqM); Potassium 3.3 mmol/L (3.5-5.1); Sodium 142 mmol/L (137-145); Total Bilirubin 0.4 mg/dL (0.2-1.3); Total Protein 7.1 g/dL (6.3-8.2)
[2016-11-30 19:44] LABS: INR 1.1 (<1.1); Partial Thromboplastin Time 24.7 sec (22.0-30.0); Prothrombin Time 10.8 sec (9.0-12.0)
[2016-11-30 19:54] LABS: Creatine Kinase 41 U/L (30-135)
[2016-11-30 20:07] LABS: Creatine Kinase MB 0.4 ng/mL (0.0-2.4); Troponin I <0.012 ng/mL (0.000-0.034)
[2016-11-30 20:39] VITALS: RESP 20
[2016-11-30] MEDS ORDERED: KETOROLAC 30 MG/ML 1 ML VIAL IVP STA (20:48)
[2016-11-30] MEDS ORDERED: LORazepam 2 MG/ML SYRINGE IV STA (21:19)
[2016-11-30 21:48] VITALS: BP 116/60; PULSE 90; TEMP 97.8
--- NOTE | 2016-11-30 22:23 | XR ---
EXAMINATION TYPE: XR chest 2V DATE OF EXAM: 11/30/2016 7:46 PM COMPARISON: Chest radiograph dated 11/22/2016 HISTORY: Chest pain with history of hypertension. TECHNIQUE: Frontal and lateral views of the chest are obtained. FINDINGS: There has been interval development of mild pulmonary vascular congestion and redemonstrat ion of mild cardiomegaly. Obscuration of the left hemidiaphragm and costophrenic angles are related t o copious soft tissues. No pleural effusion, focal consolidation, or pneumothorax. The osseous struct ures are intact. IMPRESSION: Interval development of mild pulmonary vascular congestion and cardiomegaly. Findings ma y relate to decompensated congestive heart failure or noncardiogenic fluid overload.
== END 2016-11-30 21:44 | disposition home or self-care (01) ==
LOC: EC 18:28
DX: F41.9 Anxiety disorder, unspecified (principal); R07.89 Other chest pain; R09.89 Other specified symptoms and signs involving the circulatory and respiratory systems; I51.7 Cardiomegaly; K21.9 Gastro-esophageal reflux disease without esophagitis; I10 Essential (primary) hypertension; F31.9 Bipolar disorder, unspecified; M19.90 Unspecified osteoarthritis, unspecified site; G47.30 Sleep apnea, unspecified; Z88.8 Allergy status to other drugs, medicaments and biological substances; Z88.5 Allergy status to narcotic agent; Z98.61 Coronary angioplasty status; Z79.82 Long term (current) use of aspirin; Z87.891 Personal history of nicotine dependence; Z79.899 Other long term (current) drug therapy
CPT/HCPCS: 36415; 93005; 85379; 80053; 82550; 82553; 83735; 84484; 85025; 85610; 85730; 71020; 99285; 96374; 96375; 96361 ×2; J2060; J1885

== ENCOUNTER 2016-12-05 10:52 | Emergency (ER) | payer MEDICARE, OTHER ==
[2016-12-05] MEDS ORDERED: ASPIRIN 81 MG CHEW PO STA (10:57)
--- NOTE | 2016-12-05 11:00 | ED ---
General Adult HPI - General Stated complaint: Chest Pain Time Seen by Provider: 12/05/16 10:54 Source: RN notes reviewed - History of Present Illness Initial comments: 56-year-old female presents to the emergency Department chief complaint of chest pain. Patient has had this chest pain on and off for the past few weeks. Patient was seen here in the emergency department she did have a negative stress test. Patient states that she has started to develop some shortness of breath with this. Patient has noticed some swelling to the bilateral lower extremities. Patient states that she was concerned when she continued to have this chest pain shortness rest so she thought that she should be seen. Patient' s x-ray did show an enlarged heart with some fluid she came back to the emergency department. Patient states she hasn't had any fever or chills with this. Patient denies any cough cold runny nose. Patient states is no change when she lays back.Patient denies any recent fever, chills, back pain, abdominal pain, nausea vomiting, numbness or tingling, dysuria or hematuria, constipation or diarrhea, headaches or visual changes, or any other current symptoms. - Related Data Home Medications Medication Instructions Recorded Confirmed Esomeprazole Magnesium [NexIUM] 40 mg PO DAILY 11/20/15 12/05/16 Ergocalciferol [Vitamin D2 50,000 unit PO BLAKE 07/24/16 12/05/16 (DRISDOL)] Venlafaxine HCl ER [Effexor XR] 150 mg PO HS 07/24/16 12/05/16 Ziprasidone [Geodon] 80 mg PO BID 07/24/16 12/05/16 Hydrocodone/Acetaminophen 1 tab PO TID PRN 08/31/16 12/05/16 [Hydrocodon-Acetaminophn 10-325] traZODone HCL 50 mg PO HS PRN 08/31/16 12/05/16 Albuterol Nebulized [Ventolin 2.5 mg INHALATION RT-Q4H PRN 09/10/16 12/05/16 Nebulized] Aspirin 325 mg PO DAILY 10/21/16 12/05/16 Clotrimazole Cream [Lotrimin Cream] 1 applic TOPICAL BID PRN 10/21/16 12/05/16 Ibuprofen [Motrin] 600 mg PO TID PRN 10/21/16 12/05/16 Isosorbide Mononitrate ER [Imdur] 30 mg PO DAILY 10/21/16 12/05/16 LORazepam [Ativan] 1 mg PO TID PRN 10/21/16 12/05/16 Melatonin 5 mg PO HS PRN 10/21/16 12/05/16 Nystatin 100,000 Unit/gm Powd 1 applic TOPICAL BID PRN 10/21/16 12/05/16 [Mycostatin Powder] Metoprolol Tartrate [Lopressor] 12.5 mg PO BID 10/30/16 12/05/16 amLODIPine [Norvasc] 2.5 mg PO DAILY 10/30/16 12/05/16 Psyllium Husk 100% [Metamucil] 6 gm PO DAILY PRN 11/30/16 12/05/16 traMADol HCL [Ultram] 50 mg PO Q6HR PRN 11/30/16 12/05/16 Lisinopril [Zestril] 10 mg PO DAILY 12/05/16 12/05/16 Allergies Allergy/AdvReac Type Severity Reaction Status Date / Time codeine Allergy Unknown Verified 12/05/16 11:50 lithium Allergy Unknown Verified 12/05/16 11:50 Review of Systems ROS Statement: Those systems with pertinent positive or pertinent negative responses have been documented in the HPI. ROS Other: All systems not noted in ROS Statement are negative. Past Medical History Past Medical History: Chest Pain / Angina, Diabetes Mellitus, GERD/Reflux, Hyperlipidemia, Hypertension, Osteoarthritis (OA), Sleep Apnea/CPAP/BIPAP Additional Past Medical History / Comment(s): borderline diabetic-no meds, uses CPAP, DJD, R ear infection, pt stated had past head injury" has comprehension problems", "has a sore on lt foot" History of Any Multi-Drug Resistant Organisms: None Reported Past Surgical History: Bladder Surgery, Heart Catheterization, Tubal Ligation Additional Past Surgical History / Comment(s): 2015 cardiac cath-normal, bladder suspension Past Anesthesia/Blood Transfusion Reactions: No Reported Reaction Past Psychological History: Bipolar Additional Psychological History / Comment(s): Pt resides with her boyfriend. She does not drive, her boyfriend takes her to appointments. She sees a psychiatrist at [facility] and has a counselor. She has a cane. She has CPAP. Smoking Status: Former smoker Past Alcohol Use History: None Reported Additional Past Alcohol Use History / Comment(s): started smoking at age 43 smoked 10 cig per day, quit Past Drug Use History: None Reported - Past Family History Father History Unknown: Yes Family Medical History: Unable to Obtain Mother Family Medical History: Diabetes Mellitus General Exam - General Exam Comments Initial Comments: General: The patient is awake and alert, in no distress, and does not appear acutely ill. Eye: Pupils are equal, round and reactive to light, extra-ocular movements are intact; there is normal conjunctiva bilaterally. No signs of icterus. Ears, nose, mouth and throat: There are moist mucous membranes and no oral lesions. Neck: The neck is supple, there is no tenderness. Cardiovascular: There is a regular rate and rhythm. No murmur, rub or gallop is appreciated. Respiratory: Lungs are clear to auscultation, respirations are non-labored, breath sounds are equal. No wheezes, stridor, rales, or rhonchi. Gastrointestinal: Soft, non-distended, non-tender abdomen without masses or organomegaly noted. There is no rebound or guarding present. No CVA tenderness. Bowel sounds are unremarkable. Back: There is no tenderness to palpation in the midline. There is no obvious deformity. No rashes noted. Musculoskeletal: Normal ROM, no tenderness, There is no pedal edema. Minimal swelling to bilateral lower extremities. Sensation intact. Pulses equal bilaterally 2+. Neurological: CN II-XII intact, There are no obvious motor or sensory deficits. Coordination appears grossly intact. Speech is normal. Skin: Skin is warm and dry and no rashes or lesions are noted. Psychiatric: Cooperative, appropriate mood & affect, normal judgment. Course Vital Signs 12/05/16 11:06 Temperature 97 F L Pulse Rate 92 Respiratory 18 Rate Blood Pressure 112/66 O2 Sat by Pulse 95 Oximetry Medical Decision Making - Medical Decision Making 56-year-old female presents emergency Department chief complaint of chest pain. Patient's previous records are reviewed that does show some fluid as well as cardiomegaly. This time we'll further evaluate the patient. At this time the patient's x-rays reviewed that does not show an enlarged heart and does not show fluid in the lungs patient's EKG and laboratory is reviewed that shows no acute changes as well. This time we discussed outpatient follow-up with cardiology and she is given the information. We discussed return parameters. Patient stated that she understood she is having a plan. EVIDENCE. She'll be discharged. - Lab Data Result diagrams: 12/05/16 10:50 12/05/16 10:50 Lab Results 12/05/16 12/05/16 12/05/16 Range/Units 10:50 10:50 10:50 WBC 8.5 (3.8-10.6) k/uL RBC 4.11 (3.80-5.40) m/uL Hgb 11.9 (11.4-16.0) gm/dL Hct 36.5 (34.0-46.0) % MCV 88.9 (80.0-100.0) fL MCH 28.8 (25.0-35.0) pg MCHC 32.4 (31.0-37.0) g/dL RDW 13.7 (11.5-15.5) % Plt Count 400 (150-450) k/uL Neutrophils % 77 % Lymphocytes % 18 % Monocytes % 4 % Eosinophils % 0 % Basophils % 0 % Neutrophils # 6.5 (1.3-7.7) k/uL Lymphocytes # 1.5 (1.0-4.8) k/uL Monocytes # 0.3 (0-1.0) k/uL Eosinophils # 0.0 (0-0.7) k/uL Basophils # 0.0 (0-0.2) k/uL PT (9.0-12.0) sec INR (<1.1) APTT (22.0-30.0) sec Sodium 140 (137-145) mmol/L Potassium 3.8 (3.5-5.1) mmol/L Chloride 103 (98-107) mmol/L Carbon Dioxide 27 (22-30) mmol/L Anion Gap 10 mmol/L BUN 16 (7-17) mg/dL Creatinine 0.76 (0.52-1.04) mg/dL Est GFR (MDRD) Af Amer >60 (>60 ml/min/1.73 sqM) Est GFR (MDRD) Non-Af >60 (>60 ml/min/1.73 sqM) Glucose 148 H (74-99) mg/dL Calcium 9.1 (8.4-10.2) mg/dL Magnesium 1.7 (1.6-2.3) mg/dL Total Bilirubin 0.4 (0.2-1.3) mg/dL AST 19 (14-36) U/L ALT 33 (9-52) U/L Alkaline Phosphatase 70 (38-126) U/L Total Creatine Kinase 39 (30-135) U/L CK-MB (CK-2) 0.3 (0.0-2.4) ng/mL CK-MB (CK-2) Rel Index 0.8 Troponin I <0.012 (0.000-0.034) ng/mL NT-Pro-B Natriuret Pep pg/mL Total Protein 6.6 (6.3-8.2) g/dL Albumin 3.8 (3.5-5.0) g/dL 12/05/16 12/05/16 Range/Units 10:50 10:50 WBC (3.8-10.6) k/uL RBC (3.80-5.40) m/uL Hgb (11.4-16.0) gm/dL Hct (34.0-46.0) % MCV (80.0-100.0) fL MCH (25.0-35.0) pg MCHC (31.0-37.0) g/dL RDW (11.5-15.5) % Plt Count (150-450) k/uL Neutrophils % % Lymphocytes % % Monocytes % % Eosinophils % % Basophils % % Neutrophils # (1.3-7.7) k/uL Lymphocytes # (1.0-4.8) k/uL Monocytes # (0-1.0) k/uL Eosinophils # (0-0.7) k/uL Basophils # (0-0.2) k/uL PT 11.2 (9.0-12.0) sec INR 1.1 (<1.1) APTT 24.9 (22.0-30.0) sec Sodium (137-145) mmol/L Potassium (3.5-5.1) mmol/L Chloride (98-107) mmol/L Carbon Dioxide (22-30) mmol/L Anion Gap mmol/L BUN (7-17) mg/dL Creatinine (0.52-1.04) mg/dL Est GFR (MDRD) Af Amer (>60 ml/min/1.73 sqM) Est GFR (MDRD) Non-Af (>60 ml/min/1.73 sqM) Glucose (74-99) mg/dL Calcium (8.4-10.2) mg/dL Magnesium (1.6-2.3) mg/dL Total Bilirubin (0.2-1.3) mg/dL AST (14-36) U/L ALT (9-52) U/L Alkaline Phosphatase (38-126) U/L Total Creatine Kinase (30-135) U/L CK-MB (CK-2) (0.0-2.4) ng/mL CK-MB (CK-2) Rel Index Troponin I (0.000-0.034) ng/mL NT-Pro-B Natriuret Pep 31 pg/mL Total Protein (6.3-8.2) g/dL Albumin (3.5-5.0) g/dL - Radiology Data Radiology results: report reviewed, image reviewed Disposition Clinical Impression: Chest wall pain Disposition: HOME SELF-CARE Condition: Stable Instructions: Costochondritis (ED) Additional Instructions: Please use medication as discussed. Please follow up with family doctor if symptoms have not improved over the next two days. Please return to the emergency room if your symptoms increase or worsen or for any other concerns. Referrals: Cliff Norton MD [Primary Care Provider] - 1-2 days Ajit Guerrero MD [STAFF PHYSICIAN] - 1-2 days Time of Disposition: 11:56
[2016-12-05 11:19] LABS: Basophils % (A) 0 %; CH 29.1; CHCM 32.9; Eosinophils % (A) 0 %; HCT 36.5 % (34.0-46.0); HDW 2.48; HGB 11.9 gm/dL (11.4-16.0); Luc # (Auto) 0.12; Luc % (Auto) 1; Lymphocytes # (A) 1.5 k/uL (1.0-4.8); Lymphocytes % (A) 18 %; MCH 28.8 pg (25.0-35.0); MCHC 32.4 g/dL (31.0-37.0); MCV 88.9 fL (80.0-100.0); Mean Platelet Volume 6.1; Monocytes # (A) 0.3 k/uL (0-1.0); Monocytes % (A) 4 %; Neutrophils # (A) 6.5 k/uL (1.3-7.7); Neutrophils % (A) 77 %; RBC 4.11 m/uL (3.80-5.40); RDW 13.7 % (11.5-15.5); WBC 8.5 k/uL (3.8-10.6)
[2016-12-05 11:26] LABS: ALT 33 U/L (9-52); AST 19 U/L (14-36); Alkaline Phosphatase 70 U/L (38-126); Anion Gap 10 mmol/L; Blood Urea Nitrogen 16 mg/dL (7-17); Calcium 9.1 mg/dL (8.4-10.2); Carbon Dioxide 27 mmol/L (22-30); Chloride 103 mmol/L (98-107); Glucose 148 mg/dL (74-99); INR 1.1 (<1.1); Magnesium 1.7 mg/dL (1.6-2.3); Non-African American GFR(MDRD) >60 (>60 ml/min/1.73 sqM); Partial Thromboplastin Time 24.9 sec (22.0-30.0); Potassium 3.8 mmol/L (3.5-5.1); Prothrombin Time 11.2 sec (9.0-12.0); Sodium 140 mmol/L (137-145); Total Bilirubin 0.4 mg/dL (0.2-1.3); Total Protein 6.6 g/dL (6.3-8.2)
--- NOTE | 2016-12-05 11:28 | XR ---
EXAMINATION TYPE: XR chest 2V DATE OF EXAM: 12/05/2016 11:18 AM COMPARISON: 11/30/2016 HISTORY: Shortness of breath TECHNIQUE: Frontal and lateral views of the chest are obtained. FINDINGS: Scattered senescent parenchymal changes noted. Hyperinflation compatible with COPD. No evidence for infiltrate. Mild strandy density right lower lobe may reflect linear atelectasis. Heart size is stable. Mediastinal structures are stable and grossly unremarkable. No evidence for hilar prominence. Degenerative changes dorsal spine. IMPRESSION: 1. No evidence for acute pulmonary disease.
[2016-12-05] MEDS ORDERED: KETOROLAC 30 MG/ML 1 ML VIAL IVP STA (11:34)
[2016-12-05 11:37] LABS: Creatine Kinase 39 U/L (30-135)
[2016-12-05 11:50] LABS: Creatine Kinase MB 0.3 ng/mL (0.0-2.4); Troponin I <0.012 ng/mL (0.000-0.034)
[2016-12-05 12:04] VITALS: BP 115/64; PULSE 90; RESP 16; TEMP 97.6
== END 2016-12-05 12:05 | disposition home or self-care (01) ==
LOC: EC 10:52
DX: R07.89 Other chest pain (principal); K21.9 Gastro-esophageal reflux disease without esophagitis; I10 Essential (primary) hypertension; E78.5 Hyperlipidemia, unspecified; E11.9 Type 2 diabetes mellitus without complications; Z98.61 Coronary angioplasty status; F31.9 Bipolar disorder, unspecified; Z87.891 Personal history of nicotine dependence; M79.89 Other specified soft tissue disorders; Z79.899 Other long term (current) drug therapy; Z79.82 Long term (current) use of aspirin; Z88.5 Allergy status to narcotic agent
CPT/HCPCS: 36415; 71020; 80053; 82550; 82553; 83735; 83880; 84484; 85025; 85610; 85730; 93005; 96374; 99285

== ENCOUNTER 2017-01-07 04:03 | Emergency (ER) | payer MEDICARE, OTHER ==
[2017-01-07] MEDS ORDERED: DIPH,PERTUS(ACELL)TETVAC-LF 0.5 ML VIAL IM ONE (04:06)
[2017-01-07] MEDS ORDERED: ceFAZolin 1,000 MG in DEXTROSE/WATER 1 50ML.BAG IVPB STA (04:06)
--- NOTE | 2017-01-07 04:24 | XR ---
EXAM: XR Chest, 1 View. CLINICAL HISTORY: Reason: trauma/intubation TECHNIQUE: Frontal view of the chest. COMPARISON: 12/05/16 two-view chest. FINDINGS: There is artifact present including from backboard, overlying support structures and clothing. Exam also limited by its portable nature. Lungs: The lungs are grossly clear. Pleural spaces: There is no pleural effusion or pneumothorax seen on this supine exam. Heart: Mild enlargement of the cardiopericardial silhouette is stable. Mediastinum: The mediastinal contours are within normal limits. Bones: Minimal rightward curvature of the thoracic spine may in part be positional. No acute displaced fracture is seen. Tubes and lines: ET tube appears to be in satisfactory position, tip at the inferior margin of the clavicular heads. An NG tube is seen extending to the stomach with tip in the fundus. IMPRESSION: 1. Lines and tubes as above. 2. Limited, without gross acute intrathoracic sequela from trauma seen.
[2017-01-07 04:29] VITALS: BP 54/20; PULSE 66; RESP 16
[2017-01-07 04:29] LABS: Aty Lym Flag Slight; CH 27.8; CHCM 27.2; HCT 38.2 % (34.0-46.0); HGB 10.8 gm/dL (11.4-16.0); Hypochromasia Marked; Immature Gran Flag Moderate; MCHC 28.3 g/dL (31.0-37.0); Macrocytosis Slight; Mean Platelet Volume 8.3; RBC 3.73 m/uL (3.80-5.40); RDW 13.3 % (11.5-15.5); WBC 6.1 k/uL (3.8-10.6); WBC (Perox) 6.34
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
[2017-01-07 04:30] LABS: MCV 102.4 fL (80.0-100.0)
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
[2017-01-07 04:37] LABS: INR 1.1 (<1.1); Prothrombin Time 11.4 sec (9.0-12.0)
[2017-01-07 04:38] LABS: ALT 688 U/L (9-52); AST 601 U/L (14-36); Alcohol <10 mg/dL; Alkaline Phosphatase 74 U/L (38-126); Amylase 115 U/L (30-110); Anion Gap 25 mmol/L; Blood Urea Nitrogen 14 mg/dL (7-17); Calcium 8.7 mg/dL (8.4-10.2); Carbon Dioxide 12 mmol/L (22-30); Chloride 101 mmol/L (98-107); Glucose 336 mg/dL (74-99); Non-African American GFR(MDRD) 42 (>60 ml/min/1.73 sqM); Potassium 4.8 mmol/L (3.5-5.1); Sodium 138 mmol/L (137-145); Total Bilirubin 0.1 mg/dL (0.2-1.3); Total Protein 5.2 g/dL (6.3-8.2)
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
[2017-01-07 05:03] LABS: Partial Thromboplastin Time 66.6 sec (22.0-30.0)
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
[2017-01-07 05:11] LABS: ABG HCO3 11 mmol/L (21-25); ABG PCO2 65 mmHg (35-45); ABG PH <7.00 (7.35-7.45); ABG PO2 102 mmHg (83-108)
[2017-01-07 05:11] LABS: Creatine Kinase MB 3.5 ng/mL (0.0-2.4); Troponin I 0.079 ng/mL (0.000-0.034)
[2017-01-07 05:12] LABS: ABG Base Excess -19.8 mmol/L; ABG Oxygen Saturation 90.1 % (94-97); ABG TCO2 13 mmol/L (19-24)
[2017-01-07 05:50] LABS: Appearance,Urine Clear (Clear); Bilirubin,Urine Negative (Negative); Glucose,Urine (UA) Negative (Negative); Ketones,Urine Negative (Negative); Leukocyte Esterase,Urine Negative (Negative); Nitrite,Urine Negative (Negative); Particle Count 4498; Protein,Urine 1+ (Negative); RBC,Urine 4 /hpf (0-5); Specific Gravity,Urine 1.018 (1.001-1.035); Squamous Epithelial Cell,Urine 1 /hpf (0-4); UA Billing (MACRO vs. MICRO) MICRO; WBC,Urine 4 /hpf (0-5)
[2017-01-07 06:22] LABS: Add Differential Manual Differential
[2017-01-07 06:30] LABS: Nucleated Red Blood Cells 0 /100 WBC (0-0)
[2017-01-07 06:31] LABS: Manual Review Performed; Metamyelocytes % 1.5 %; Myelocytes % 0.5 %; Total Cells Counted 200
== END 2017-01-07 05:45 | disposition other institution (70) ==
LOC: EC 04:03
DX: S09.90XA Unspecified injury of head, initial encounter (principal); I46.8 Cardiac arrest due to other underlying condition; R74.0 Nonspecific elevation of levels of transaminase and lactic acid dehydrogenase [LDH]; Y08.89XA Assault by other specified means, initial encounter; Z79.899 Other long term (current) drug therapy; K21.9 Gastro-esophageal reflux disease without esophagitis; Z79.82 Long term (current) use of aspirin; I10 Essential (primary) hypertension; Z88.5 Allergy status to narcotic agent; Z88.8 Allergy status to other drugs, medicaments and biological substances; Z87.891 Personal history of nicotine dependence; F31.9 Bipolar disorder, unspecified; G47.30 Sleep apnea, unspecified; S00.33XA Contusion of nose, initial encounter; I20.9 Angina pectoris, unspecified
CPT/HCPCS: 96365 ×2; 99285 ×2; 90471; 36415; 36600; 94002; 93005; 86900; 86901; 80053; 82150; 82550; 82553; 82805; 83690; 84484; 85025; 85610; 85730; 86850; 81001; 80306; 80320; 71010; 72125; 70486; 70450; 90715; J0690